=== PATIENT | male | born 1990 | race Caucasian/White ===

== ENCOUNTER 2023-04-06 12:43 | Emergency (ER) | payer SELFPAY ==
[2023-04-06 12:49] VITALS: BMI 33.0
[2023-04-06] MEDS ORDERED: SODIUM CHLORIDE 1,000 ML IV SCH (13:00)
[2023-04-06 14:10] LABS: BASO % 0.3 % (0-2.0); HEMATOCRIT 44.2 % (35.4-49); LYMPH % 27.8 % (8-40); MCH 28.7 pg (25.7-33.7); MEAN CELL VOLUME 84.4 fl (80-96); MEAN PLT VOLUME 9.4 fl (7.5-11.1); MONO % 8.8 % (3.8-10.2); NEUT % 62.1 % (42.8-82.8); PLATELET COUNT 199 10^3/uL (134-434); RBC 5.24 M/mm3 (4.00-5.60); RDW 13.2 % (11.9-15.9); WHITE BLOOD COUNT 7.9 K/mm3 (4.0-10.0)
[2023-04-06 14:16] LABS: INR 1.02 (0.83-1.09); PROTHROMBIN TIME (PATIENT) 11.8 SEC (9.7-13.0)
[2023-04-06 14:19] LABS: ACTIVATED PTT 29.1 SECONDS (25.2-36.5)
[2023-04-06 14:30] LABS: POTASSIUM 4.2 mmol/L (3.5-5.1)
[2023-04-06 14:32] LABS: CALCIUM 9.4 mg/dL (8.5-10.1)
[2023-04-06 14:34] LABS: BLOOD UREA NITROGEN 15.7 mg/dL (7-18)
[2023-04-06 14:36] LABS: CREATININE 1.1 mg/dL (0.55-1.3)
[2023-04-06 14:38] LABS: BILIRUBIN,TOTAL 0.8 mg/dL (0.2-1); TOT PROT 7.6 g/dl (6.4-8.2)
[2023-04-06 14:50] LABS: PH,URINE 5.5 (5.0-8.0); URINE APPEARANCE CLEAR; URINE BILIRUBIN NEGATIVE (NEGATIVE); URINE COLOR YELLOW; URINE GLUCOSE (UA) NEGATIVE (NEGATIVE); URINE KETONE NEGATIVE (NEGATIVE); URINE LEUK ESTERASE NEGATIVE (NEGATIVE); URINE NITRITE NEGATIVE (NEGATIVE); URINE PROTEIN NEGATIVE (NEGATIVE); URINE UROBILINOGEN 0.2 mg/dL (0.2-1.0)
[2023-04-06] MEDS ORDERED: ACETAMINOPHEN 500 MG TABLET (FP) PO ONE (15:37)
[2023-04-06] MEDS ORDERED: ACETAMINOPHEN 325 MG TABLET (FP) ONE (15:40)
[2023-04-06 16:20] VITALS: RESP 20
[2023-04-06] MEDS ORDERED: LIDOCAINE 4% PATCH TP ONE ×2 (17:27→17:39)
[2023-04-06 17:49] VITALS: BP 126/69; PULSE 65; TEMP 98.6
[2023-04-06] MEDS ORDERED: LIDOCAINE PATCH REMOVAL MC ONE (22:00)
== END 2023-04-06 17:40 | disposition left against medical advice (07) ==
LOC: JER 12:43
DX: R29.810 Facial weakness (principal); R07.9 Chest pain, unspecified; R20.2 Paresthesia of skin; R06.02 Shortness of breath; R53.1 Weakness; M54.6 Pain in thoracic spine
CPT/HCPCS: 36415; 70450-TC; 71275-TC; 74174-TC; 80053; 80061; 81003; 82550; 82553; 82962; 83036; 84484; 85025; 85610; 85730; 86850; 86900; 86901; 99285-25; Q9967